=== PATIENT | female | born 1995 | race Caucasian/White ===

== ENCOUNTER 2018-04-24 08:51 | Emergency (ER) | payer SELFPAY ==
[~2018-04-24] VITALS: Ht 160 cm; Wt 77.3 kg
[~2018-04-24 08:51] MED LIST: LORTAB 5/500 501 TAB PO; NO HOME MEDICATIONS
[2018-04-24 09:06] VITALS: BP 136/68; TEMP 98.4
[2018-04-24 11:02] VITALS: PULSE 76
== END 2018-04-24 11:00 | disposition home or self-care (01) ==
LOC: COL.ER 08:51
DX: S61.211A Laceration without foreign body of left index finger without damage to nail, initial encounter (principal); W26.0XXA Contact with knife, initial encounter; Y92.89 Other specified places as the place of occurrence of the external cause

== ENCOUNTER 2018-05-07 17:23 | Emergency (ER) | payer SELFPAY ==
[2018-05-07 17:26] VITALS: BP 120/62; PULSE 83; TEMP 98.7
== END 2018-05-07 17:33 | disposition home or self-care (01) ==
LOC: COL.ER 17:23
DX: S61.211D Laceration without foreign body of left index finger without damage to nail, subsequent encounter (principal); X58.XXXD Exposure to other specified factors, subsequent encounter